=== PATIENT | female | born 1995 | race Caucasian/White ===

== ENCOUNTER 2017-07-04 20:51 | Emergency (ER) | payer OTHER ==
[2017-07-04 21:42] LABS: % BASOPHILS 0.9 % (0.0-2.0); % EOSINOPHILS 3.5 % (0.0-5.0); % MONOCYTES 3.9 % (2.0-10.0); % NEUTROPHILS 71.7 % (40.0-80.0); HEMATOCRIT 31.5 % (35.0-45.0); HEMOGLOBIN 10.6 gm/dL (11.7-15.5); MEAN CELL VOLUME 75.2 fl (81-100); MEAN CORPUSCULAR HEMOGLOBIN 25.3 pg (27.0-31.0); MEAN CORPUSCULAR HGB CONC 33.6 pg (28.0-36.0); MEAN PLATELET VOLUME 8.3 fl; NEUTROPHILE ABSOLUTE 8.1 Th/cmm (1.8-8.0); PLATELET COUNT 291 Th/cmm (150-400); RED BLOOD COUNT 4.19 Mil/cmm (3.80-5.10); RED CELL DISTRIBUTION WIDTH 14.7 % (11.5-20.0)
[2017-07-04 21:44] LABS: WHITE BLOOD COUNT 11.2 Th/cmm (4.8-10.8)
--- NOTE | 2017-07-04 21:55 | ED Physician Chart ---
Chief Complaint/HPI - Patient Information Date Seen:: 07/04/17 Time Seen:: 21:30 Chief Complaint:: epigastric pain History of Present Illness:: patient developed epigastric pain 30 min [employer]. Vomited 3 times. No diarrhea. No history of similar pain. Allergies:: Allergies Allergy/AdvReac Type Severity Reaction Status Date / Time No Known Allergies Allergy Verified 09/26/16 03:33 Vitals:: Vital Signs - 8 hr 07/04/17 20:55 Temp 98.7 F HR 89 RR 19 BP 129/66 O2 Sat % 100 Review of Systems - Review of Systems General/Constitutional: No fever, No chills Skin: No skin lesions Head: No headache Eyes: No loss of vision ENT: No earache Neck: No neck pain, No swelling Cardio Vascular: No chest pain, No palpitations Pulmonary: No SOB GI: Nausea, Vomiting, Pain G/U: No dysuria Musculoskeletal: No bone or joint pain Endocrine: No polyuria, No polydipsia Psychiatric: No prior psych history, No depression Hematopoietic: No bruising Allergic/Immuno: No urticaria Neurological: No syncope, No focal symptoms Past Medical History - Past Medical History Past Medical History: No significant medical hx Family History: None Social History: Non Smoker, No Alcohol Surgical History: , other (3 C-sections) Psychiatricy History: None Family Medical History - Family Member Mother History Unknown: Yes Ethnicity: Physical Exam - Physical Examination General/Constitutional: Well-developed, well-nourished, Alert, No distress Head: Atraumatic Eyes: Lids, conjuctiva normal, PERRL Skin: Nl inspection, No rash, No skin lesions, No ecchymosis ENMT: External ears, nose nl, TM canals nl, Nasal exam nl, Lips, teeth, gums nl , Oropharynx nl, Tonsils nl Neck: No nuchal rigidity Respiratory: Nl effort/Exclusion, Clear to Auscultation Cardio Vascular: RRR, No murmur, gallop, rubs GI: No hernia, Normal BS's Other GI comments:: epigastrtic and RUQ tenderness Labs/Radiology/EKG Results - Lab Results Results: Laboratory Tests 07/04/17 21:31 WBC 11.2 H D RBC 4.19 Hgb 10.6 L Hct 31.5 L MCV 75.2 L MCH 25.3 L MCHC Differential 33.6 RDW 14.7 Plt Count 291 D MPV 8.3 Neutrophils % 71.7 Lymphocytes % 20.0 Monocytes % 3.9 Eosinophils % 3.5 Basophils % 0.9 Laboratory Results - last 24 hr 07/04/17 07/04/17 07/04/17 21:22 21:22 21:31 WBC 11.2 H D RBC 4.19 Hgb 10.6 L Hct 31.5 L MCV 75.2 L MCH 25.3 L MCHC Differential 33.6 RDW 14.7 Plt Count 291 D MPV 8.3 Neutrophils % 71.7 Lymphocytes % 20.0 Monocytes % 3.9 Eosinophils % 3.5 Basophils % 0.9 Sodium Potassium Chloride Carbon Dioxide Anion Gap BUN Creatinine Est GFR ( Amer) Est GFR (Non-Af Amer) BUN/Creatinine Ratio Glucose Calcium Lipase Urine Source CLEAN C Urine Color YELLOW Urine Clarity CLEAR Urine pH 6.0 Ur Specific [place] >= 1.030 Urine Protein NEGATIVE Urine Glucose (UA) NEGATIVE Urine Ketones NEGATIVE Urine Blood NEGATIVE Urine Nitrate NEGATIVE Urine Bilirubin NEGATIVE Urine Urobilinogen 0.2 Ur Leukocyte Esterase NEGATIVE Urine RBC NONE SEEN Urine WBC NONE SEEN Ur Epithelial Cells NONE SEEN Urine Bacteria NONE SEEN Urine Test NEGATIVE 07/04/17 21:31 WBC RBC Hgb Hct MCV MCH MCHC Differential RDW Plt Count MPV Neutrophils % Lymphocytes % Monocytes % Eosinophils % Basophils % Sodium 137 Potassium 3.9 Chloride 106 Carbon Dioxide 25.1 Anion Gap 9.8 BUN 13 Creatinine 0.8 Est GFR ( Amer) > 60.0 Est GFR (Non-Af Amer) > 60.0 BUN/Creatinine Ratio 16.3 Glucose 102 Calcium 9.6 Lipase 24 Urine Source Urine Color Urine Clarity Urine pH Ur Specific [place] Urine Protein Urine Glucose (UA) Urine Ketones Urine Blood Urine Nitrate Urine Bilirubin Urine Urobilinogen Ur Leukocyte Esterase Urine RBC Urine WBC Ur Epithelial Cells Urine Bacteria Urine Test Assessment - Assessment General Assessment: at 2300 pain much improved. Patient instructed to follow-up with PCP for referral to general surgeon for cholecystectomy. ED Septic Shock - . Is Septic Shock (SBP<90, OR Lactate>4 mmol\L) present?: No - <6hrs of presentation: Vital Signs: Vital Signs - 8 hr 07/04/17 20:55 Temp 98.7 F HR 89 RR 19 BP 129/66 O2 Sat % 100 Reassessment (Disposition) - Reassessment Reassessment:: Rx for [facility] #16 Sig 1 QID PRN Reassessment Condition:: Improved - Diagnosis Diagnosis:: biliary colic; leukocytosis - Patient Disposition Discharge/Transfer:: Home Condition at Disposition:: Stable, Improved
[2017-07-04 21:56] LABS: URINE BILIRUBIN NEGATIVE (NEGATIVE); URINE BLOOD NEGATIVE (NEGATIVE); URINE GLUCOSE (UA) NEGATIVE (NEGATIVE); URINE KETONE NEGATIVE (NEGATIVE); URINE PROTEIN NEGATIVE (NEGATIVE); URINE UROBILINOGEN 0.2 E.U./dL (0.2 - 1.0)
[2017-07-04 21:57] LABS: ANION GAP 9.8 (7.0-16.0); BUN - UREA NITROGEN 13 mg/dL (7-25); BUN/CREATININE RATIO 16.3; CALCIUM SERUM 9.6 mg/dL (8.6-10.3); CARBON DIOXIDE 25.1 mEq/L (21.0-31.0); CHLORIDE 106 mEq/L (98-107); CREATININE - SERUM 0.8 mg/dL (0.6-1.2); GLUCOSE 102 mg/dL (70-105); LIPASE 24 U/L (11-82); POTASSIUM SERUM 3.9 mEq/L (3.5-5.1); SODIUM SERUM 137 mEq/L (136-145)
[2017-07-04 21:57] LABS: URINE COLOR YELLOW
[2017-07-04 21:58] LABS: URINE BACTERIA NONE SEEN /hpf (NONE SEEN); URINE EPITHELIAL CELLS NONE SEEN /lpf (FEW); URINE RBC NONE SEEN /hpf (0-5); URINE WBC NONE SEEN /hpf (0-5)
--- NOTE | 2017-07-05 11:18 | Diagnostic Imaging Report ---
Abdominal ultrasound (limited), gallbladder Limited sonographic sector images obtained about the right upper quadrant of the abdomen in the region of the gallbladder. The exam demonstrates multiple echogenic densities in the gallbladder fossa associated with extensive acoustic shadowing. Findings most likely associated with calcified gallstones. No biliary dilatation (common bile duct equals 3 mm). No definite abnormality seen in the region of the pancreas. IMPRESSION: 1. Findings consistent with cholelithiasis.
== END 2017-07-04 23:35 | disposition home or self-care (01) ==
LOC: ER 20:51
DX: K80.50 Calculus of bile duct without cholangitis or cholecystitis without obstruction (principal)
CPT/HCPCS: 99285; 96372; 76705; 36415; 85025; 81001; 81025; 83690; 80048; Q0162; J1885; 76815-TC